=== PATIENT | male | born 1995 | race Caucasian/White ===

== ENCOUNTER 2018-08-03 06:41 | Emergency (ER) | payer SELFPAY ==
[~2018-08-03] VITALS: Ht 177.8 cm; Wt 99.8 kg
--- NOTE | 2018-08-03 06:48 | NUR ---
Dr. Herron at bedside for MSE.
--- NOTE | 2018-08-03 07:03 | NUR ---
Xray at bedside.
--- NOTE | 2018-08-03 07:07 | NUR ---
Report given to Natalie jefferson.
--- NOTE | 2018-08-03 07:20 | NUR ---
1st contact with patient- [id number], for discharge by Dr Herron. Patient discharged to home in stable conditon. Written and verbal after care instructions given to patient. Patient verbalizes understanding and compliance of instructions.
== END 2018-08-03 07:23 | disposition home or self-care (01) ==
LOC: ER 06:47
DX: H10.31 Unspecified acute conjunctivitis, right eye (principal); J20.9 Acute bronchitis, unspecified
CPT/HCPCS: 71045; A4663

== ENCOUNTER 2019-01-10 08:27 | Emergency (ER) | payer BC, OTHER ==
[~2019-01-10] VITALS: Ht 177.8 cm; Wt 90.7 kg
--- NOTE | 2019-01-10 08:45 | NUR ---
KAYLA CHRISTIE AT BEDSIDE FOR MSE.
[2019-01-10 08:53] VITALS: BP 141/73
--- NOTE | 2019-01-10 08:53 | NUR ---
Patient discharged to home in stable conditon. Written and verbal after care instructions given. Patient verbalizes understanding of instructions. ALL BELONGINGS W/ PT. PT SELF-AMBULATED W/O DIFFICULTY.
== END 2019-01-10 08:54 | disposition home or self-care (01) ==
LOC: ER 08:27
DX: M54.5 Low back pain (principal); K64.5 Perianal venous thrombosis; Z90.49 Acquired absence of other specified parts of digestive tract
CPT/HCPCS: A4663

== ENCOUNTER → 2019-02-17 | Outpatient (CLI) | payer BC, OTHER ==
[2019-02-17 01:36] LABS: BASOPHILS % (AUTO) 0.5 % (0.0-2.0); EOSINOPHILS # (AUTO) 0.4 K/uL (0.0-0.7); EOSINOPHILS % (AUTO) 4.6 % (0.0-7.0); HEMOGLOBIN 16.2 g/dL (12.5-16.3); LYMPHOCYTES # (AUTO) 3.2 K/uL (20.0-40.0); LYMPHOCYTES % (AUTO) 39.3 % (20.5-51.5); MEAN CORPUSCULAR HEMOGLOBIN 31.5 uug (23.8-33.4); MEAN CORPUSCULAR HGB CONC 35 g/dL (32.5-36.3); MEAN CORPUSCULAR VOLUME 91.2 fL (73.0-96.2); MONOCYTES # (AUTO) 0.8 K/uL (2.0-10.0); MONOCYTES % (AUTO) 9.6 % (0.0-11.0); NEUTROPHILS # (AUTO) 3.8 K/uL (1.8-8.9); PLATELET COUNT (AUTO) 224 K/uL (152-348); RED BLOOD CELL COUNT(AUTO) 5.16 MIL/uL (4.06-5.63); WHITE BLOOD COUNT (AUTO) 8.2 K/uL (3.6-10.2)
[2019-02-17 02:07] LABS: BILIRUBIN,TOTAL 1.1 mg/dL (0.2-1.0); POTASSIUM 4.1 mmol/L (3.5-5.1); TOTAL PROTEIN, SERUM 7.2 g/dL (6.4-8.2); URIC ACID 6.4 mg/dL (3.5-7.2)
[2019-02-17 02:56] LABS: *BILIRUBIN,URIN NEGATIVE (NEGATIVE); *BLOOD, URINE NEGATIVE (NEGATIVE); *CLARITY,URINE CLEAR (CLEAR); *COLOR,URINE YELLOW (YELLOW); *KETONES,URINE NEGATIVE (NEGATIVE); *UROBILINOGEN,URINE 0.2 E.U./dl (NORMAL); LEUKOCYTE ESTERASE ,URINE NEGATIVE (NEGATIVE); NITRITE, URINE NEGATIVE (NEGATIVE); UGLUCOSE NEGATIVE (NEGATIVE)
== END | disposition home or self-care (01) ==
LOC: LAB 00:16
PROVIDERS: ATTEND Physician Assistant Medical
DX: M54.5 Low back pain (principal)
CPT/HCPCS: 36415; 72110; 82306; 84550; 85025

== ENCOUNTER 2019-05-09 12:56 | Emergency (ER) | payer BC, OTHER ==
[~2019-05-09] VITALS: Ht 180.3 cm; Wt 99.8 kg
[2019-05-09] MEDS ORDERED: KETOROLAC TROMETHAMINE 60 MG INJ IM ONE ×2 (13:15)
[2019-05-09 13:51] VITALS: BP 134/67
--- NOTE | 2019-05-09 13:51 | NUR ---
Patient discharged to home in stable conditon. Written and verbal after care instructions given. Patient verbalizes understanding of instructions. all belongings w/ pt. pt self-ambulated w/o difficulty.
== END 2019-05-09 13:51 | disposition home or self-care (01) ==
LOC: ER 12:57
DX: M25.511 Pain in right shoulder (principal); M79.10 Myalgia, unspecified site; B34.9 Viral infection, unspecified; R53.83 Other fatigue; F41.9 Anxiety disorder, unspecified; Z90.49 Acquired absence of other specified parts of digestive tract
CPT/HCPCS: 82962; 93005; 96372; 99284; J1885; A4663

== ENCOUNTER 2020-02-29 08:40 | Emergency (ER) | payer BC, OTHER ==
[~2020-02-29] VITALS: Ht 180.3 cm; Wt 99.8 kg
[~2020-02-29 08:40] MED LIST: LORA-258 PO
--- NOTE | 2020-02-29 09:00 | NUR ---
Pt was seen by .
--- NOTE | 2020-02-29 09:14 | NUR ---
Pt d/c home with extensive verbal ACI by and myself. Pt left before written ACI could be given.
== END 2020-02-29 09:15 | disposition home or self-care (01) ==
LOC: ER 08:40
DX: R05 Cough (principal); R07.81 Pleurodynia; R68.83 Chills (without fever); Z20.828 Contact with and (suspected) exposure to other viral communicable diseases; F41.9 Anxiety disorder, unspecified; Z79.899 Other long term (current) drug therapy; Z87.01 Personal history of pneumonia (recurrent)
CPT/HCPCS: 99283; U0003; A4663

== ENCOUNTER 2024-12-23 15:16 | Emergency (ER) | payer BC ==
[~2024-12-23] VITALS: Ht 152.4 cm; Wt 95.3 kg
[~2024-12-23 15:16] MED LIST changes: +AZIT500T PO; +PRED50TA PO
[2024-12-23 15:21] VITALS: BP 150/86
[2024-12-23] MEDS ORDERED: DOXY100C5 PO (15:59)
[2024-12-23 16:03] VITALS: BP 145/81; O2SAT 98
== END 2024-12-23 16:04 | disposition home or self-care (01) ==
LOC: ER 15:22
DX: J18.9 Pneumonia, unspecified organism (principal); Z79.52 Long term (current) use of systemic steroids; Z87.01 Personal history of pneumonia (recurrent); Z88.7 Allergy status to serum and vaccine
CPT/HCPCS: 71045; A4606; A4663